=== PATIENT | male | born 1950 | race Caucasian/White ===

== ENCOUNTER 2018-12-16 01:31 | Emergency (ER) | payer OTHER ==
[~2018-12-16] VITALS: Ht 180.3 cm; Wt 79.4 kg
[2018-12-16 01:34] VITALS: BP 115/73; Ht 180.3 cm; Wt 79.4 kg
== END 2018-12-16 01:52 | disposition other institution (70) ==
LOC: ED 01:31
DX: Z02.89 Encounter for other administrative examinations (principal)